=== PATIENT | female | born 1975 | race African-American/Black ===

== ENCOUNTER 2022-03-15 15:46 | Emergency (ER) | payer OTHER ==
[~2022-03-15] VITALS: Ht 172.7 cm; Wt 100.0 kg
[2022-03-15 15:57] VITALS: BP 138/69
[2022-03-15] MEDS ORDERED: NAPR500T7 MT (19:03)
[2022-03-15] MEDS ORDERED: BENZ1LOZ73 MT (19:03)
== END 2022-03-15 19:32 | disposition home or self-care (01) ==
LOC: ER 15:46
DX: B34.9 Viral infection, unspecified (principal); Z20.822 Contact with and (suspected) exposure to COVID-19
CPT/HCPCS: 81025; 99282